=== PATIENT | female | born 1975 | race Caucasian/White ===

== ENCOUNTER → 2016-10-26 | Outpatient (CLI) | payer BC ==
[~2016-10-26] VITALS: Ht 160 cm; Wt 54.9 kg
[~2016-10-26] MED LIST: AMITRIPTYLINE H10 M3 PO; CATAPRES-TTS 10.1 M1 TRANSDERM; NUVARING VAGIN1 EACH VAG
--- NOTE | ~2016-10-26 | HPC ---
[facility] [place] [address] PAIN MANAGEMENT CONSULTATION Name: YENIFER RAINEY Janusz Room #: REG DANISHA Vera#: [id number] Admission: 10/26/16 Attend Phys: Kane Aquino MD Discharge: Date of : 77 Report #: [id number] THIS REPORT FOR: //name// CC: MAURO Aquino [facility] DATE OF SERVICE: 10/26/2016 CHIEF COMPLAINT: Pain in the left foot. Possible complex regional pain syndrome. HISTORY OF PRESENT ILLNESS: The patient is a 41-year-old female who has been referred to the pain clinic for evaluation. She has had some problem with her left foot. She states that there was neuroma between her toes. She had surgery on this area. She unfortunately developed an infection. This was treated by incision and drainage. Irrigation and debridement was performed in December 2013. She was treated with antibiotics and had a second surgery. She has been having pain and discomfort in the foot. She has noticed some color changes. She had been seen by ____. She was diagnosed with complex regional pain syndrome. She continues to have some pain and discomfort involving the left foot. She was contemplating the possibility of more surgery. She was told that she needs to have the complex regional pain syndrome treated and controlled before consideration of any additional surgery. She also has some problems with her right arm. She has been told that she had nerve entrapment in the right arm at the level of the elbow. She had an injection in that area and had some improvement, but has noted some worsening of the pain at this juncture. She also has had some pain and discomfort in the left chest wall. This was thought to be costochondritis. This pain has waxed and waned. ALLERGIES: No known drug allergies. MEDICATIONS: NuvaRing monthly. FAMILY HISTORY: No significant family history. SOCIAL HISTORY: Denies use of tobacco, occasionally drinks alcoholic beverages, works as a cosmetology educator. PAST MEDICAL HISTORY: Left foot pain, otherwise unremarkable. [facility] [address] [place] [address] PAIN MANAGEMENT CONSULTATION Name: BRIGIDYENIFER Janusz Room #: REG [facility] Jody#: [id number] Admission: 10/26/16 Attend Phys: Kane Aquino MD Discharge: Date of : 77 Report #: [id number] PAST SURGICAL HISTORY: Left foot surgery 09/2013, 12/2013; abdominal laparoscopic surgery 01/2013, hernia surgery 2005, left knee scope 1992, appendectomy 04/2014, tonsillectomy 1984. REVIEW OF SYSTEMS: Questionnaire in the chart 14-point review indicates generally good health, chest pain, numbness and tingling sensation involving the affected foot, insomnia, cold intolerance. LABORATORY DATA: No laboratory values are available at the time of our interview. PHYSICAL EXAMINATION: Blood pressure 132/88, pulse 87, respiratory rate 14 and room air saturation is 100, height 5 feet 3 inches, weight 121 pounds, BMI is 21. The patient has complained of pain in the left foot and toes. Evidence of surgery in the third toe, which has well healed. Temperature is 71 degrees. There is some purplish color to the affected foot. She admits to increased pain with light touch. She states that she usually has her foot uncovered when possible in bed because of discomfort associated with sheets and blankets. Difficult to note any hair changes in her foot in left versus right. No evidence of sweating. Has some soreness in the plantar aspect of her foot to palpation, notes some decreased motion in the metatarsophalangeal joint. The patient states that she has difficulty moving her toes up or down. The patient complains of pain and discomfort involving her right arm. There is soreness in the area of the right elbow at the level of the median nerve. The patient also has some soreness at approximately the T2/3 contralateral area. IMPRESSION: 1. Left foot pain with signs consistent with complex regional pain syndrome. 2. Right elbow pain with soreness in the area of the median nerve at the level of the elbow. 3. History of costochondritis, left chest wall area approximately T2/T3. RECOMMENDATIONS: We discussed the treatment options with the patient. Risks and benefits of treatment for complex regional pain syndrome was discussed. We discussed sympathetic blocks. Risks and benefits of those treatments were discussed. We will consider use of amitriptyline 10 mg at bedtime and increase as tolerated, to noted efficacy to help with sleep and decreasing the pain. Also a clonidine patch 0.1 mg will be applied per week to the affected area of her left foot. She will consider the options of lumbar sympathetic block. Possibility of an injection near the medial nerve at the level of the elbow has been discussed. She will call us if she has any problems with her medications. [address] [address] PAIN MANAGEMENT CONSULTATION Name: YENIFER RAINEY Room #: REG DANISHA Vera#: [id number] Admission: 10/26/16 Attend Phys: Kane Aquino MD Discharge: Date of : 77 Report #: [id number] We would like to thank you for letting us participate in her care. We hope she continues to improve. By: [id number] aKne Aquino MD /
[2016-10-26 12:54] VITALS: BP 132/88
== END | disposition home or self-care (01) ==
LOC: PAIN 07:25
DX: M79.672 Pain in left foot (principal); M25.521 Pain in right elbow; M94.0 Chondrocostal junction syndrome [Tietze]; Z98.890 Other specified postprocedural states; Z79.899 Other long term (current) drug therapy; G90.50 Complex regional pain syndrome I, unspecified

== ENCOUNTER → 2016-11-23 | Outpatient (CLI) | payer BC ==
[~2016-11-23] VITALS: Ht 157.5 cm; Wt 56.6 kg
[~2016-11-23] MED LIST changes: +CATAPRES-TTS 20.2 MG TRANSDERM
--- NOTE | ~2016-11-23 | HPC ---
[facility] [address] [place] [address] PAIN MANAGEMENT CONSULTATION Name: YENIFER RAINEY Room #: REG DANISHA Jody#: [id number] Admission: 11/23/16 Attend Phys: Kane Aquino MD Discharge: Date of : 77 Report #: [id number] THIS REPORT FOR: //name// CC: Pranay Strickland MD DATE OF SERVICE: 11/23/2016 FOLLOWUP COMPLAINT: Still having pain in the left foot and toes. FOLLOWUP HISTORY: The patient is a 41-year-old female who has been seen in the pain clinic because of pain and discomfort in her left foot, which has clinical findings consistent with reflex sympathetic dystrophy/complex regional pain syndrome. She was given a clonidine patch to wear. She felt that there was some improvement, but continues to find that her pain is problematic. She was having pain and discomfort in her right arm with pain radiating down into the fingers. She has noted an improvement in that pain and discomfort. She also had some pain and discomfort in the chest area, which was consistent with intercostal neuritis. That pain has improved as well. She continues to have pain and discomfort down in the left foot and in her toes. She describes it as throbbing and aching, rates it as a 4-5. She notes that there continues to be some color change involving the foot. Light touch is uncomfortable. Painful touch is more intense. She continues to sleep with her foot out from under covers secondary to pain and discomfort. PHYSICAL EXAMINATION: Blood pressure 119/82, pulse 80, respiratory rate 14, and room air saturations 100%. Height 5 feet 2, weight 124 pounds, BMI is 22. The patient has bluish tinge to her foot. It appears cold. Temperature is approximately 75 degrees. Light touch is uncomfortable. She does note that the foot color changes. No significant swelling is noted. The hair pattern does not show any increased hair growth and seems pretty consistent with the contralateral side. IMPRESSION: 1. Left foot pain with signs consistent with complex regional pain syndrome. 2. Right elbow pain with soreness in the area of the median nerve at the level of the elbow, has improved. 3. History of costochondritis, has less pain and discomfort in the T2-T3 area today. RECOMMENDATIONS: We discussed treatment options with the patient. We will consider a lumbar sympathetic block. We will renew her clonidine patch 0.2 mg per day, up from 0.1, and have her wear it on the affected area. She will try Elavil 10 mg at bedtime and increase this to two tablets at bedtime if she is [address] [address] PAIN MANAGEMENT CONSULTATION Name: RAINEYYENIFER Room #: REG DANISHA Vera#: [id number] Admission: 11/23/16 Attend Phys: Kane Aquino MD Discharge: Date of : 77 Report #: [id number] able tolerate it without problem. We have discussed pathophysiology of complex regional pain syndrome/reflex sympathetic dystrophy. The patient will consider a lumbar sympathetic block at the next meeting. We would like to thank you for letting us participate in her care. We hope she continues to improve. <ELECTRONICALLY SIGNED> By: Kane Aquino MD 12/16/16 [id number] Kane Aquino MD /[facility]
[2016-11-23 12:47] VITALS: BP 119/82
== END | disposition home or self-care (01) ==
LOC: PAIN 07:22
DX: M79.672 Pain in left foot (principal); M25.521 Pain in right elbow; M94.0 Chondrocostal junction syndrome [Tietze]

== ENCOUNTER → 2018-03-09 | Outpatient (CLI) | payer BC, OTHER ==
[~2018-03-09] VITALS: Ht 157.5 cm; Wt 53.3 kg
--- NOTE | ~2018-03-09 | HPC ---
[facility] [address] [place] [address] PAIN MANAGEMENT CONSULTATION Name: YENIFER RAINEY Room #: REG DANISHA Jody#: [id number] Admission: 03/09/18 Attend Phys: Kane Aquino MD Discharge: Date of : 77 Report #: [id number] THIS REPORT FOR: //name// CC: Pranay Strickland MD DATE OF SERVICE: 03/09/2018 PRIMARY CARE PHYSICIAN: Pranay Lowry MD as well as Otf Strickland MD FOLLOWUP: Her insurance changed and was unable to come back. Now we have got her insurance changed and I would like to have another injection. There was really helpful. HISTORY: The patient is a 43-year-old female who has been seen in the pain clinic in the past because of pain associated with her left foot. The patient had pain and discomfort in her left foot. She did have surgery in the left foot. Continue to have some increased pain and discomfort. She has had symptoms consistent with sympathetic dystrophy/complex regional pain syndrome. She underwent a lumbar sympathetic block in the past. Noticed that her pain improved quite a bit. She desired having another injection. At that time, she had changed insurance carriers. She was unable to undergo the procedure. Now this year her insurance carrier has changed again. She has returned to the pain clinic with a desire to undergo another lumbar sympathetic block. Noticed that was helpful. Notes that her foot, which oftentimes feels very cold warmed up at that point and is now has returned to that state of discomfort. She has returned to the pain clinic with hope of undergoing another injection and noted improvement in her pain condition. ALLERGIES: No known drug allergies. CURRENT MEDICATIONS: No medications are being taken. PAIN CLINIC ASSESSMENT/PQRS: 1. History of osteoarthritis. The patient has not been treated for rheumatoid arthritis or osteoarthritis. 2. Height 5 feet 2 inches, weight 117 pounds, BMI is 21.5. 3. Vital signs: Blood pressure 148/85, pulse 74, respiratory rate 14, room air saturation 100%. 4. Pain intensity 07/06. 5. Fall risk. The patient has not fallen in the last 3 months. 6. Blood thinner. The patient is not on a blood thinning medication. 7. Hypertension. The patient is not being treated for hypertension. 8. Opioids greater than 6 weeks. The patient is not on an opioid regimen. 9. Risk assessment tool, low for opioid use. [address] [address] PAIN MANAGEMENT CONSULTATION Name: YENIFER RAINEY Room #: REG CLI [facility]#: [id number] Admission: 03/09/18 Attend Phys: Kane Aquino MD Discharge: Date of : 77 Report #: [id number] 10. Functional assessment tool. 11. Recreational drug use. The patient denies use of recreational drugs. 12. Tobacco. The patient has never smoked. 13. Alcohol: The patient drinks alcoholic beverages on special occasions. PHYSICAL EXAMINATION: GENERAL: The patient is a well-developed, well-nourished white female. Appears her stated age. She is alert and oriented x 3. Affect is appropriate. Speech is fluent. HEENT: Normocephalic, atraumatic. Extraocular eye muscles intact. Sclerae nonicteric. Mucous membranes are moist. NECK: Without adenopathy or JVD. HEART: Regular rate. ABDOMEN: Nontender. Bowel sounds present. LUNGS: Clear to auscultation without rhonchi or rales. EXTREMITIES: Upper extremity muscle strength judged to be 5/5 for the major muscle groups in the upper extremity. Lower extremities, muscle strength judged to be 5/5 for the major muscle groups in the lower extremity. The patient has some pain and discomfort in the left lower extremity. This is cold to touch. It is somewhat cold outside today. Temperature is about 35. The patient notes some pain and discomfort with slight allodynia. Her toes are somewhat bluish. Slow capillary refill. Temperature 72 degrees. IMPRESSION: Left foot pain status post surgery on the left foot with findings of pain, which has improved in the past secondary to treatment for complex regional pain syndrome using a lumbar sympathetic block. RECOMMENDATIONS: We discussed treatment options with the patient and her . Risks and benefits of the procedure, which could include but are not limited to infection, worsening of pain, no improvement in pain, trauma, nerve damage and the patient elects to proceed. PROCEDURE NOTE: The patient was taken to the procedure area. She was placed in the prone position. Electrodes were placed to monitor her cardiac. A pulse oximeter was placed to monitor respiratory. Her back was sterilely prepped at the lumbar 2 area. Fluoroscopy using anterior and posterior viewing were implemented. The patient's back had been sterilely prepped. A skin wheal was placed at the left body L2. A 20-gauge Chiba needle was then advanced into the appropriate placement in the anterior portion of the lumbar area. Aspiration was negative. Contrast was injected. A total of 3 mL contrast was injected. Appropriate filling was noted in the anterior portion of the vertebral body as well as the lateral portion. A 3 mL 1.5% lidocaine with 1:200,000 epinephrine was injected. There were no EKG changes. The patient did not note any sensory changes. A total of 10 mL of 1.5% lidocaine and 40 mg of triamcinolone was injected. An additional 10 mL of 0.25% bupivacaine was injected. The patient remained in the pain clinic for an appropriate amount of time. Prior [facility] [address] [place] [address] PAIN MANAGEMENT CONSULTATION Name: YENIFER RAINEY Janusz Room #: REG CLI Christo.#: [id number] Admission: 03/09/18 Attend Phys: Kane Aquino MD Discharge: Date of : 77 Report #: [id number] temperature was 72 degrees. Temperature after the injection was 86 degrees. Total of 27 seconds fluoroscopy time was used. The patient's pain was 3 at the time of discharge. She will follow up in the future as needed. We would like to thank you for letting us participate in her care. We hope she continues to improve. By: [id number] Kane Aquino MD /[facility]
[2018-03-09 10:01] VITALS: BP 148/85
--- NOTE | 2018-03-09 10:12 | NUR ---
Pain Clinic Assessment: 1. History of Osteoarthritis: History of Rheumatoid Arthritis: 2. Height: 5 ft. 2 in. 157.5 cm. Weight: 117.4 lb. oz. 53.252 kg. Patient's BMI: 21.5 3. Vital Signs: BP: 148/85 Pulse: 72 Resp: 14 Temp: 02 Sat: 100 ECG Mon: 4. Pain Intensity: 5 5. Fall Risk: Dizziness: N Needs help standing or walking: N Fallen in the last 3 months: N Fall risk comments: 6. Patient on Blood Thinner: None 7. History of Hypertension: N 8. Opioid Therapy greater than 6 weeks: N Opiate Contract Signed: 9. Risk Assessment Tool Provided: 10. Functional Assessment Tool: 11. Recreational Drug Use: Never Drug Type: Tobacco Use: Never Smoker Tobacco Type: Amount or Packs/day: How Many Years: Alcohol Use: Yes Frequency: Special Occasions Quant:
== END | disposition home or self-care (01) ==
LOC: PAIN 08:04
DX: G90.522 Complex regional pain syndrome I of left lower limb (principal); M54.16 Radiculopathy, lumbar region; M19.90 Unspecified osteoarthritis, unspecified site; I10 Essential (primary) hypertension